=== PATIENT | female | born 2000 | race Caucasian/White ===

== ENCOUNTER 2023-12-28 16:20 | Emergency (ER) | payer MEDICAID, OTHER ==
[~2023-12-28] VITALS: Ht 165.1 cm; Wt 65.2 kg
[~2023-12-28 16:20] MED LIST: AMPH5TAB2; CLON0.1T
[2023-12-28 17:53] LABS: Urine Bacteria FEW /hpf (None Seen); Urine Blood Negative /uL (Negative); Urine Clarity Clear (Clear); Urine Color Yellow (Yellow); Urine Mucus FEW (None Seen); Urine Protein, UAD Negative (Negative); Urine Specific Gravity 1.021 (1.001-1.035); Urine Urobilinogen Normal (Negative); Urine WBC 6 /hpf (0 - 5); Urine pH 6.5 (5.0-9.0)
[2023-12-28 18:23] LABS: Basophils # (auto) 0 10 ^3/uL (0-0.2); Basophils % (auto) 0.2 % (0.0-2.0); Eosinophils # (auto) 0.1 10 ^3/uL (0-0.8); Eosinophils % (auto) 0.8 % (0.0-7.0); Hematocrit 36.7 % (36.0-46.0); Hemoglobin 12.6 g/dL (12.2-16.2); Lymphocytes # (auto) 1.3 10 ^3/uL (0.4-5.4); Lymphocytes % (auto) 12.9 % (10.0-50.0); Mean Corpuscular Hemoglobin 30.7 pg (28.0-32.0); Mean Corpuscular Hgb Conc. 34.2 g/dL (32.0-36.0); Mean Corpuscular Volume 89.8 fL (80.0-100.0); Monocytes # (auto) 0.5 10 ^3/uL (0-1.3); Monocytes % (auto) 5.3 % (0.0-12.0); Neutrophils # (auto) 8.4 10 ^3/uL (1.6-8.6); Neutrophils % (auto) 80.8 % (37.0-80.0); Nucleated Red Blood Cells % 0.1 %; Red Blood Cells 4.09 10^6/uL (4.0-5.20); White Blood Cell 10.4 10^3/uL (4.4-10.8)
[2023-12-28 19:40] VITALS: BP 104/65; PULSE 64; RESP 16; TEMP 98.2; O2SAT 100
== END 2023-12-28 19:43 | disposition home or self-care (01) ==
LOC: ER 16:20
DX: O20.8 Other hemorrhage in early pregnancy (principal); R10.2 Pelvic and perineal pain; Z79.899 Other long term (current) drug therapy; Z3A.20 20 weeks gestation of pregnancy
CPT/HCPCS: 36415; 76805; 81001; 83880; 84702; 85025

== ENCOUNTER 2024-03-14 23:32 | Observation (INO) | payer OTHER ==
[~2024-03-14] VITALS: Ht 167.6 cm; Wt 68.0 kg
[2024-03-15] MEDS ORDERED: NIF10C PO (01:31)
[2024-03-15] MEDS: NIFEdipine 10 MG CAP PO ONE (01:53)
== END 2024-03-15 01:55 | disposition home or self-care (01) ==
LOC: LDRP 23:32
PROVIDERS: ADMIT Obstetrics & Gynecology; ATTEND Obstetrics & Gynecology
DX: O46.93 Antepartum hemorrhage, unspecified, third trimester (principal); O26.893 Other specified pregnancy related conditions, third trimester; R30.9 Painful micturition, unspecified; Z3A.32 32 weeks gestation of pregnancy
CPT/HCPCS: 59025; 76815; 81002; 94760; G0378

== ENCOUNTER 2024-03-15 02:00 | Emergency (ER) | payer OTHER ==
[~2024-03-15] VITALS: Ht 167.6 cm; Wt 68.6 kg
[~2024-03-15 02:00] MED LIST changes: +NIF10C PO
[2024-03-15 02:20] LABS: Basophils # (auto) 0 10 ^3/uL (0-0.2); Basophils % (auto) 0.3 % (0.0-2.0); Eosinophils # (auto) 0.1 10 ^3/uL (0-0.8); Eosinophils % (auto) 0.8 % (0.0-7.0); Hematocrit 34.2 % (36.0-46.0); Hemoglobin 11.9 g/dL (12.2-16.2); Lymphocytes # (auto) 1.3 10 ^3/uL (0.4-5.4); Lymphocytes % (auto) 14.1 % (10.0-50.0); Mean Corpuscular Hemoglobin 31.7 pg (28.0-32.0); Mean Corpuscular Hgb Conc. 34.6 g/dL (32.0-36.0); Mean Corpuscular Volume 91.4 fL (80.0-100.0); Monocytes # (auto) 0.6 10 ^3/uL (0-1.3); Neutrophils # (auto) 7.5 10 ^3/uL (1.6-8.6); Neutrophils % (auto) 78.8 % (37.0-80.0); Nucleated Red Blood Cells % 0.1 %; Red Blood Cells 3.74 10^6/uL (4.0-5.20); Red Cell Distribution Width 13.5 % (11.8-14.3); White Blood Cell 9.5 10^3/uL (4.4-10.8)
[2024-03-15 02:38] LABS: Alanine Aminotransferase 13 U/L (7-40); Albumin 3.7 g/dL (3.2-4.8); Alkaline Phosphatase 82 U/L (46-116); Anion Gap 5 (5-15); Aspartate Aminotransferase 9 U/L (13-40); BUN/Creatinine Ratio 10.6 (10.0-20.0); Bilirubin, Total 0.9 mg/dL (0.2-1.0); Blood Urea Nitrogen 7 mg/dL (9-23); Carbon Dioxide 26 mmol/L (20-30); Chloride 106 mmol/L (98-107); Glucose 71 mg/dL (74-106); INR 0.97 (0.9-1.15); Magnesium 1.9 mg/dL (1.6-2.6); Partial Thromboplastin Time 26.8 SEC (24.5-34.5); Potassium 4.1 mmol/L (3.5-5.1); Prothrombin Time 10.3 sec (9.3-11.8); Sodium 137 mmol/L (136-145); Total Protein 6.4 g/dL (5.7-8.2)
[2024-03-15] MEDS: MAALOX PLUS or MAALOX 30 ML PO ONE (04:27)
[2024-03-15 04:30] VITALS: BP 101/58; PULSE 83; RESP 18; TEMP 98.6; O2SAT 99
== END 2024-03-15 04:33 | disposition home or self-care (01) ==
LOC: ER 02:00
DX: O26.893 Other specified pregnancy related conditions, third trimester (principal); R07.89 Other chest pain; K21.9 Gastro-esophageal reflux disease without esophagitis; Z3A.31 31 weeks gestation of pregnancy; Z79.899 Other long term (current) drug therapy
CPT/HCPCS: 36415; 80053; 83735; 83880; 84484; 85025; 85610; 85730; 93005

== ENCOUNTER 2024-03-30 14:35 | Observation (INO) | payer OTHER ==
[~2024-03-30] VITALS: Ht 165.1 cm; Wt 68.9 kg
[~2024-03-30 14:35] MED LIST changes: -NIF10C PO; +NIFE10CA52 PO
[2024-03-30 15:41] LABS: Urine Bacteria FEW /hpf (None Seen); Urine Blood 1+ /uL (Negative); Urine Clarity Turbid (Clear); Urine Color Light-Orange (Yellow); Urine Mucus FEW (None Seen); Urine Protein, UAD 1+ (Negative); Urine Specific Gravity 1.015 (1.001-1.035); Urine Urobilinogen 2 mg/dL (Negative); Urine WBC 506 /hpf (0 - 5); Urine WBC Clumps PRESENT /hpf (None Seen)
[2024-03-30 15:45] LABS: Amphetamine Screen, Urine Neg (NEGATIVE); Barbiturate Scree,Urine Neg (NEGATIVE); Benzodiazephine Screen, Urine Neg (NEGATIVE); Cannabinoid Screen, Urine Neg (NEGATIVE); Cocaine Screen, Urine Neg (NEGATIVE); Opiate Scree,Urine Neg (NEGATIVE); Phencyclidine Screen, Urine Neg (NEGATIVE)
[2024-03-30] MEDS: ceFAZolin 2 GM/D5W50ml 50 ML IV ONE (15:57)
[2024-03-30] MEDS: LACTATED RINGER'S 1,000 ML IV ONE ×2 (15:57→17:41)
[2024-03-30] MEDS ORDERED: PREN-96 PO (16:09)
[2024-03-30] MEDS ORDERED: CEPH250C PO (16:09)
[2024-03-30] MEDS: ACETAMINOPHEN 325 MG TAB PO ONE (17:44)
[2024-03-30] MEDS: LACTATED RINGER'S 1,000 ML IV SCH (20:30)
[2024-03-30 20:35] LABS: Basophils # (auto) 0 10 ^3/uL (0-0.2); Basophils % (auto) 0.3 % (0.0-2.0); Eosinophils # (auto) 0 10 ^3/uL (0-0.8); Hematocrit 31.6 % (36.0-46.0); Hemoglobin 10.6 g/dL (12.2-16.2); Lymphocytes # (auto) 0.4 10 ^3/uL (0.4-5.4); Lymphocytes % (auto) 2.5 % (10.0-50.0); Mean Corpuscular Hemoglobin 30.6 pg (28.0-32.0); Mean Corpuscular Hgb Conc. 33.5 g/dL (32.0-36.0); Mean Corpuscular Volume 91.2 fL (80.0-100.0); Monocytes # (auto) 0.4 10 ^3/uL (0-1.3); Monocytes % (auto) 2.3 % (0.0-12.0); Neutrophils # (auto) 14.9 10 ^3/uL (1.6-8.6); Neutrophils % (auto) 94.9 % (37.0-80.0); Red Blood Cells 3.47 10^6/uL (4.0-5.20); Red Cell Distribution Width 13.5 % (11.8-14.3); White Blood Cell 15.7 10^3/uL (4.4-10.8)
[2024-03-30] MEDS: ONDANSETRON HCL 4 MG/2 ML VIAL IM ONE (20:58)
[2024-03-30 21:19] LABS: COVID19 ANTIGEN SOFIA FIA NEGATIVE (NEGATIVE)
[2024-03-30 21:20] LABS: Rapid Influenza A Negative (Negative); Rapid Influenza B Negative (Negative)
[2024-03-31] MEDS ORDERED: ceFAZolin 1GM/50ML 50 ML IV SCH ×2
== END 2024-03-30 22:23 | disposition home or self-care (01) ==
LOC: LDRP 14:35
PROVIDERS: ADMIT Obstetrics & Gynecology; ATTEND Obstetrics & Gynecology
DX: O23.43 Unspecified infection of urinary tract in pregnancy, third trimester (principal); Z20.822 Contact with and (suspected) exposure to COVID-19; O62.9 Abnormality of forces of labor, unspecified; O26.893 Other specified pregnancy related conditions, third trimester; N89.8 Other specified noninflammatory disorders of vagina; R10.10 Upper abdominal pain, unspecified; Z3A.34 34 weeks gestation of pregnancy; Z79.899 Other long term (current) drug therapy
CPT/HCPCS: 36415; 59025; 76818; 80307; 81001; 81002; 85025; 87426; 87804; 94760; 96360; 96361; G0378; J0690; J2405; 96365; 96372

== ENCOUNTER 2024-03-30 22:55 | Emergency (ER) | payer OTHER ==
[~2024-03-30] VITALS: Ht 167.6 cm; Wt 69.0 kg
[~2024-03-30 22:55] MED LIST changes: +CEPH250C PO; +PREN-96 PO
[2024-03-30] MEDS: SODIUM CHLORIDE 0.9% 1,000 ML IV ONE ×2 (23:12→23:15)
[2024-03-30] MEDS: ACETAMINOPHEN 500 MG TAB PO ONE ×2 (23:12→23:33)
[2024-03-30 23:44] LABS: Basophils # (auto) 0 10 ^3/uL (0-0.2); Basophils % (auto) 0.1 % (0.0-2.0); Eosinophils # (auto) 0 10 ^3/uL (0-0.8); Hematocrit 34.5 % (36.0-46.0); Hemoglobin 11.3 g/dL (12.2-16.2); Lymphocytes # (auto) 0.5 10 ^3/uL (0.4-5.4); Lymphocytes % (auto) 2.2 % (10.0-50.0); Mean Corpuscular Hemoglobin 31.1 pg (28.0-32.0); Mean Corpuscular Hgb Conc. 32.9 g/dL (32.0-36.0); Mean Corpuscular Volume 94.7 fL (80.0-100.0); Monocytes # (auto) 1.2 10 ^3/uL (0-1.3); Monocytes % (auto) 5.3 % (0.0-12.0); Neutrophils # (auto) 21.4 10 ^3/uL (1.6-8.6); Neutrophils % (auto) 92.4 % (37.0-80.0); Platelet Count (auto) 156 10^3/uL (140-450); Red Blood Cells 3.64 10^6/uL (4.0-5.20); Red Cell Distribution Width 13.9 % (11.8-14.3); White Blood Cell 23.2 10^3/uL (4.4-10.8)
[2024-03-30 23:49] LABS: Chloride 104 mmol/L (98-107); Potassium 3.7 mmol/L (3.5-5.1); Sodium 133 mmol/L (136-145)
[2024-03-30 23:50] LABS: Anion Gap 9 (5-15); Calcium 8.4 mg/dL (8.7-10.4); Carbon Dioxide 20 mmol/L (20-30)
[2024-03-30 23:55] LABS: Glucose 92 mg/dL (74-106)
[2024-03-31 00:17] LABS: BUN/Creatinine Ratio 6.5 (10.0-20.0); Blood Urea Nitrogen < 5 mg/dL (9-23)
[2024-03-31] MEDS: SODIUM CHLORIDE 0.9% 2,000 ML IV ONE (00:29)
[2024-03-31] MEDS: cefTRIAXone 1GM/50ML D5W 50 ML IV ONE (01:17)
[2024-03-31] MEDS: SODIUM CHLORIDE 0.9% 1,000 ML IV ONE (01:38)
[2024-03-31 02:05] VITALS: BP 91/46; PULSE 121; RESP 25; TEMP 99.7; O2SAT 96
== END 2024-03-31 01:29 | disposition short-term general hospital (02) ==
LOC: ER 22:55
DX: O98.813 Other maternal infectious and parasitic diseases complicating pregnancy, third trimester (principal); R10.2 Pelvic and perineal pain; A41.9 Sepsis, unspecified organism; O23.43 Unspecified infection of urinary tract in pregnancy, third trimester; Z3A.34 34 weeks gestation of pregnancy; Z79.899 Other long term (current) drug therapy
CPT/HCPCS: 36415; 51702; 80048; 84702; 85025; 96361; 96365; 99285; J0696; J7030

== ENCOUNTER 2024-06-13 17:39 | Emergency (ER) | payer OTHER ==
[~2024-06-13] VITALS: Ht 167.6 cm; Wt 68.0 kg
[2024-06-13 18:34] LABS: Urine Bacteria FEW /hpf (None Seen); Urine Blood 3+ /uL (Negative); Urine Clarity Turbid (Clear); Urine Color Colorless (Yellow); Urine Mucus FEW (None Seen); Urine Protein, UAD Negative (Negative); Urine Specific Gravity 1.012 (1.001-1.035); Urine Urobilinogen Normal (Negative); Urine WBC 18 /hpf (0 - 5); Urine pH 6.5 (5.0-9.0)
[2024-06-13 18:53] LABS: Basophils # (auto) 0 10 ^3/uL (0-0.2); Basophils % (auto) 0.7 % (0.0-2.0); Eosinophils # (auto) 0.1 10 ^3/uL (0-0.8); Hematocrit 39.2 % (36.0-46.0); Hemoglobin 13.3 g/dL (12.2-16.2); Lymphocytes # (auto) 1.3 10 ^3/uL (0.4-5.4); Mean Corpuscular Hemoglobin 29.3 pg (28.0-32.0); Mean Corpuscular Hgb Conc. 33.9 g/dL (32.0-36.0); Mean Corpuscular Volume 86.4 fL (80.0-100.0); Monocytes # (auto) 0.3 10 ^3/uL (0-1.3); Monocytes % (auto) 5.4 % (0.0-12.0); Neutrophils # (auto) 3.8 10 ^3/uL (1.6-8.6); Neutrophils % (auto) 68.9 % (37.0-80.0); Nucleated Red Blood Cells % 0.1 %; Platelet Count (auto) 251 10^3/uL (140-450); Red Blood Cells 4.53 10^6/uL (4.0-5.20); Red Cell Distribution Width 13.1 % (11.8-14.3); White Blood Cell 5.6 10^3/uL (4.4-10.8)
[2024-06-13 19:03] LABS: Chloride 107 mmol/L (98-107); Potassium 4.2 mmol/L (3.5-5.1); Sodium 140 mmol/L (136-145)
[2024-06-13 19:04] LABS: Anion Gap 5 (5-15); Calcium 9.4 mg/dL (8.7-10.4); Carbon Dioxide 28 mmol/L (20-31)
[2024-06-13 19:09] LABS: BUN/Creatinine Ratio 12.5 (10.0-20.0); Blood Urea Nitrogen 12 mg/dL (9-23); Glucose 98 mg/dL (74-106)
[2024-06-13] MEDS ORDERED: NITR-87 PO (19:53)
[2024-06-13] MEDS: NITROFURANTOIN 100 mg CAP PO ONE (20:15)
[2024-06-13 20:18] VITALS: BP 105/74; PULSE 72; RESP 18; TEMP 98.4; O2SAT 100
== END 2024-06-13 20:21 | disposition home or self-care (01) ==
LOC: ER 17:39
DX: N39.0 Urinary tract infection, site not specified (principal); R10.2 Pelvic and perineal pain; N93.8 Other specified abnormal uterine and vaginal bleeding; Z79.3 Long term (current) use of hormonal contraceptives
CPT/HCPCS: 36415; 80048; 81001; 84702; 85025

== ENCOUNTER 2024-07-21 17:55 | Emergency (ER) | payer OTHER ==
[~2024-07-21] VITALS: Ht 165.1 cm; Wt 67.6 kg
[~2024-07-21 17:55] MED LIST changes: +NITR-87 PO
[2024-07-21] MEDS: FLUORESCEIN SOD OPTH TEST STRIP LEFTEYE ONE (21:36)
[2024-07-21] MEDS: TETRACAINE HCL 0.5% OPTH(EYE) SOLN 4ML LEFTEYE ONE (21:36)
[2024-07-21] MEDS ORDERED: ERY05OO OP (21:44)
--- NOTE | 2024-07-21 21:44 | ED.PDOC ---
Eye-HPI HPI Comments 23 year old female presents to ER with left eye complaint x 1 day. Patient states her son accidentally poked her in her left eye this morning with his toe nail and has since been experiencing 10/10 left eye pain, redness and yellow crusty drainage to left eye. Denies use of medications for current symptoms. States that the contacts that she was wearing were non prescription contacts and immediately removed both of them at onset of symptoms. Denies skin changes, use of glasses, numbness/tingling, headache or any further symptoms/complaints Chief Complaint: Eye Problem Time Seen by MD: 19:10 Primary Care Provider: Coy Villalobos Notes: Nurses Notes, Medications, Allergies Allergies: Coded Allergies: NO KNOWN ALLERGIES (Unverified , 05/15/12) Home Meds Active Scripts Gentamicin Sulfate (Gentamicin Sulfate) 0.3 % Summer, 2 DROP LEFTEYE 6XD for 5 Days, #1 BOTTLE 0 Refills Prov:GARRISON ANAND 07/21/24 Nitrofurantoin Monohydrate Mac (Macrobid) 100 Mg Cap, 100 MG PO BID for 5 Days, #10 CAP Prov:GIL AVILEZ PAC 06/13/24 Reported Medications Vit W/ Ferrous Fumara ( One Daily) Daily Tab, 1 TAB PO DAILY, #90 TAB 3 Refills 03/30/24 Cephalexin (KEFLEX CAPSULE) 250 Mg Cp, 500 MG PO QID for 7 Days, CAP 03/30/24 Nifedipine (PROCARDIA CAPSULE) 10 Mg Cp, 10 MG PO, CAP 03/15/24 Amphetamine/Dextroamphetamine (Adderall) 5 Mg Tab 05/15/12 Clonidine Hydrochloride (Clonidine Hcl) 0.1 Mg Tab 05/15/12 Discontinued Scripts Erythromycin (Erythromycin) 5 Mg/Gm Oin, 1 MG OP 6XD for 7 Days, #1 OIN 0 Refills Prov:GARRISON ANAND 07/21/24 Information Source: Patient Mode of Arrival: Ambulatory Past Medical History PAST MEDICAL HISTORY: UTI'S Past Medical History (Other): 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" 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 History: No Pertinent DIRECTOR OF 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 CATH LAB History Family History Family History: Unknown Social History Smoker: Non-Smoker Alcohol: Denies ETOH Use Drugs: Denies Drug Use Lives In: Home Constitutional: denies: chills, diaphoresis, fatigue, fever, malaise, sweats, weakness, others EENTM: reports: others (As stated in HPI) Respiratory: denies: cough, hemoptysis, orthopnea, SOB at rest, shortness of breath, SOB with excertion, stridor, wheezing, others Cardiovascular: denies: chest pain, dizzy spells, diaphoresis, Dyspnea on exertion, edema, irregular heart beat, left arm pain, lightheadedness, palp itations, PND, syncope, others Gastrointestinal: denies: abdomen distended, abdominal pain, blood streaked bowels, constipated, diarrhea, dysphagia, difficulty swallowing, hematemesis, melena, nausea, poor appetite, poor fluid intake, rectal bleeding, rectal pain, vomiting, others Genitourinary: denies: abnormal vagina bleeding, burning, dyspareunia, dysuria, flank pain, frequency, hematuria, incontinence, pain, , vagina discharge, urgency, others Neurological: denies: dizziness, fainting, headache, left sided numbness, left sided weakness, numbness, paresthesia, pre-existing deficit, right sided numbness, right sided weakness, seizure, speech problems, tingling, tremors, weakness, others Musculoskeletal: denies: back pain, gout, joint pain, joint swelling, muscle pain, muscle stiffness, neck pain, others Integumetry: denies: bruises, change in color, change in hair/nails, dryness, laceration, lesions, lumps, rash, wounds, others Allergic/Immunocompromised: denies: Difficulty Healing, Frequent Infections, Hives, Itching, others Hematologic/Lymphatic: denies: anemia, blood clots, easy bleeding, easy br uising, swollen glands, others Endocrine: denies: excessive hunger, excessive sweating, excessive thirst, excessive urination, flushing, intolerance to cold, intolerance to heat, unexplained weight gain, unexplained weight loss, others Psychiatric: denies: anxiety, bipolar disorder, depression, hopeless, panic disorder, schizophrenia, sleepless, suicidal, others Physical Exam General Appearance: No Apparent Distress HEENT: PERRL/EOMI, Pharynx Normal, TMs Normal, Other (Wood's lamp examination left eye-corneal abrasion and subconjunctival injection noted. No corneal ulcer noted. No drainage or skin changes to left eye appreciated. Visual acuity left eye- 20/70, Visual acuity right eye- 20/100, Visual acuity both eyes- 20/50) Neck: Full Range of Motion, Non-Tender, Normal Respiratory: Chest Non-Tender, Lungs Clear, No Accessory Muscle Use, No Respiratory Distress, Normal Breath Sounds Cardiovascular: No Murmur, No Gallop, Regular Rate/Rhythm Breast Exam: Deferred Gastrointestinal: NOT DONE Genitalia: Deferred Pelvic: Deferred Rectal: Deferred Extremities: Normal capillary refill, Normal range of motion Neurologic: Alert, No Motor Deficits, Normal Affect, Normal Mood, No Sensory Deficits Cerebellar Function: Normal Reflexes: Normal Skin: Dry, Normal Color, Warm Peripheral Pulses: 2+ Radial (R), 2+ Radial (L), 2+ Brachial (R), 2+ Brachial (L) Lymphatic: No Adenopathy Was a procedure done? Was a procedure done?: No Sedation Sedation?: No EENT DIFF Eye: Corneal Lacerations, Corneal Ulceration, Foreign Body-Conjunctiva, Periorbital Cellulits X-Ray, Labs, Meds, VS Vital Signs Date Time Temp Pulse Resp B/P (MAP) Pulse Ox O2 Delivery O2 Flow Rate FiO2 07/21/24 19:06 98.8 76 16 111/74 (86) 98 Current Medications Medications (Trade) Dose Ordered Sig/Juan Route Start Time Stop Time Status Last Admin Fluorescein Sodium (Ful-Stella) 1 mg ONCE ONCE LEFTEYE 07/21/24 21:30 07/21/24 21:31 DC 07/21/24 21:36 Tetracaine HCl (Tetracaine 0.5% Opth Soln) 1 drop ONCE ONCE LEFTEYE 07/21/24 21:30 07/21/24 21:31 DC 07/21/24 21:36 Tetracaine ophthalmic ordered Fluorescein stain ophthalmic ordered Advised to refrain from using contacts until symptoms completely resolved Advised to follow up with PCP and Ophthalmology in 1-2 days Patient verbalized understanding and agreeable with current plan of care Advised to return to ER immediately if symptoms worsen Time of 1ST Reevaluation: 21:20 Reevaluation 1ST: N/A Patient Education/Counseling: Diagnosis, Treatment, Prognosis, Need For Follow Up Family Education/Counseling: No Family Present Departure 1 Departure Time of Disposition: 21:42 Impression: Primary Impression: Corneal abrasion, left Qualified Codes: S05.02XA - Injury of conjunctiva and corneal abrasion without foreign body, left eye, initial encounter Disposition: HOME / SELF CARE / HOMELESS Condition: Stable e-Prescriptions Gentamicin Sulfate (Gentamicin Sulfate) 0.3 % Summer 2 DROP LEFTEYE 6XD for 5 Days, #1 BOTTLE 0 Refills Prov: GARRISON ANAND 07/21/24 Discharged With: Self, Friend Critical Care Note Critical Care Time?: No Stability Stability form required: No Heart Score Heart Score: Heart Score Response (Comments) Value History N/A 0 EKG N/A 0 Age N/A 0 Risk Factors N/A 0 Troponin N/A 0 Total 0 GARRISON ANAND Jul 21, 2024 21:44
[2024-07-21] MEDS ORDERED: GENT0.3S10 LEFTEYE (21:48)
[2024-07-21 21:52] VITALS: BP 118/78; TEMP 97.9
[2024-07-21 22:00] VITALS: PULSE 66; RESP 12; O2SAT 98
== END 2024-07-21 22:06 | disposition home or self-care (01) ==
LOC: ER 17:55
DX: S05.02XA Injury of conjunctiva and corneal abrasion without foreign body, left eye, initial encounter (principal); H54.61 Unqualified visual loss, right eye, normal vision left eye; Z79.899 Other long term (current) drug therapy; X58.XXXA Exposure to other specified factors, initial encounter; Y93.89 Activity, other specified; Y92.89 Other specified places as the place of occurrence of the external cause; Y99.8 Other external cause status

== ENCOUNTER 2025-05-03 09:54 | Emergency (ER) | payer OTHER ==
[~2025-05-03] VITALS: Ht 167.6 cm; Wt 61.4 kg
[~2025-05-03 09:54] MED LIST changes: +GENT0.3S10 LEFTEYE
[2025-05-03 09:58] VITALS: TEMP 98.2
[2025-05-03] MEDS ORDERED: CEPH500C PO (10:13)
[2025-05-03] MEDS ORDERED: TRIA0.02 TOP (10:13)
--- NOTE | 2025-05-03 10:16 | ED.PDOC ---
History of Present Illness(SKN HPI Comments A 24 YEAR OLD FEMALE PRESENTS TO THE ED WITH COMPLAINT OF INSECT BITE. PATIENT STATES SHE HAS AN INSECT BITE ON THE RIGHT SIDE OF HER NECK THAT SHE NOTICED YESTERDAY. PATIENT DENIES FEVER, CHILLS, SHORTNESS OF BREATH, CHEST PAIN, ABDOMINAL PAIN, NAUSEA, VOMITING, HEADACHE, OR OTHER COMPLAINTS. NO OTHER SYM PTOMS OR MODIFYING FACTORS AT THIS TIME. PATIENT IS ALERT, ORIENTED X 4, AND HAS STEADY GAIT. Chief Complaint: Insect Bite Time Seen by MD: 10:03 Primary Care Provider: Coy History of Present Illness: Nurses Notes, Medications, Allergies Allergies: Coded Allergies: Coconut (Cocos Nucifera) (Verified Allergy, Unknown, 05/03/25) Fluoxetine (Verified Allergy, Unknown, 05/03/25) Home Meds Active Scripts Cephalexin Monohydrate (Cephalexin) 500 Mg Cap, 1 CAP PO QID, #28 CAP Prov:VILLA DANIELLE 05/03/25 Triamcinolone Acetonide (Triamcinolone Acetonide) 0.025 % Cre, 1 APPLIC TOP BID, #30 GRAMS Prov:VILLA DANIELLE 05/03/25 Gentamicin Sulfate (Gentamicin Sulfate) 0.3 % Summer, 2 DROP LEFTEYE 6XD for 5 Days, #1 BOTTLE 0 Refills Prov:GARRISON ANAND 07/21/24 Nitrofurantoin Monohydrate Mac (Macrobid) 100 Mg Cap, 100 MG PO BID for 5 Days, #10 CAP Prov:GIL AVILEZ PAC 06/13/24 Reported Medications Vit W/ Ferrous Fumara ( One Daily) Daily Tab, 1 TAB PO DAILY, #90 TAB 3 Refills 03/30/24 Cephalexin (KEFLEX CAPSULE) 250 Mg Cp, 500 MG PO QID for 7 Days, CAP 03/30/24 Nifedipine (PROCARDIA CAPSULE) 10 Mg Cp, 10 MG PO, CAP 03/15/24 Amphetamine/Dextroamphetamine (Adderall) 5 Mg Tab 05/15/12 Clonidine Hydrochloride (Clonidine Hcl) 0.1 Mg Tab 05/15/12 Information Source: Patient Mode of Arrival: Ambulatory Severity: Mild, Moderate Timing: Days Duration: Since onset, Days Prehospital treatment: None Location: Neck Mechanism: Insect Occurence: Indoors Object: None Condition of Object: None Retained Foreign Body: No Wound Type: Other (INSECT BITE) Immunization Status of Animal: NA Tetanus: UTD History of: None Associated Signs and Symptoms: Redness, Pain Past Medical History PAST MEDICAL HISTORY: UTI'S 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: [employer] PROCESSING [employer]OURER History: No Pertinent [employer]ING [employer]ER History Family History Family History: Reviewed,noncontributory to illness Social History Smoker: Non-Smoker Alcohol: Denies ETOH Use Drugs: Denies Drug Use Lives In: Home Constitutional: denies: chills, diaphoresis, fatigue, fever, malaise, sweats, weakness, others EENTM: denies: blurred vision, double vision, ear bleeding, ear discharge, ear drainage, ear pain, ear ringing, eye pain, eye redness, hearing loss, mouth pain, mouth swelling, nasal discharge, nose bleeding, nose congestion, nose pain, photophobia, tearing, throat pain, throat swelling, voice changes, others Respiratory: denies: cough, hemoptysis, orthopnea, SOB at rest, shortness of breath, SOB with excertion, stridor, wheezing, others Cardiovascular: denies: chest pain, dizzy spells, diaphoresis, Dyspnea on exertion, edema, irregular heart beat, left arm pain, lightheadedness, palpitations, PND, syncope, others Gastrointestinal: denies: abdomen distended, abdominal pain, blood streaked bowels, constipated, diarrhea, dysphagia, difficulty swallowing, hematemesis, m joelle, nausea, poor appetite, poor fluid intake, rectal bleeding, rectal pain, vomiting, others Genitourinary: denies: abnormal vagina bleeding, burning, dyspareunia, dysuria, flank pain, frequency, hematuria, incontinence, pain, , vagina discharge, urgency, others Neurological: denies: dizziness, fainting, headache, left sided numbness, left sided weakness, numbness, paresthesia, pre-existing deficit, right sided numbness, right sided weakness, seizure, speech problems, tingling, tremors, weakness, others Musculoskeletal: denies: back pain, gout, joint pain, joint swelling, muscle pain, muscle stiffness, neck pain, others Integumetry: reports: lumps (RIGHT POSTERIOR NECK WALL. ), others (INSECT BITE OF NECK); denies: bruises, change in color, change in hair/nails, dryness, laceration, lesions, rash, wounds Allergic/Immunocompromised: denies: Difficulty Healing, Frequent Infections, Hives, Itching, others Hematologic/Lymphatic: denies: anemia, blood clots, easy bleeding, easy bruising, swollen glands, others Endocrine: denies: excessive hunger, excessive sweating, excessive thirst, excessive urination, flushing, intolerance to cold, intolerance to heat, unexplained weight gain, unexplained weight loss, others Psychiatric: denies: anxiety, bipolar disorder, depression, hopeless, panic disorder, schizophrenia, sleepless, suicidal, others All Other Systems: Reviewed and Negative Physical Exam General Appearance: No Apparent Distress, Normal HEENT: Normal ENT Inspection, PERRL/EOMI, Pharynx Normal, TMs Normal Neck: Full Range of Motion, Normal Inspection, Supple, Tender Lateral (WITH A SMALL RED BUM ON RIGHT SIDE NECK WALL. ) Respiratory: Chest Non-Tender, Lungs Clear, No Accessory Muscle Use, No Respiratory Distress, Normal Breath Sounds Cardiovascular: No Edema, No JVD, No Murmur, No Gallop, Normal Peripheral Pulses, Regular Rate/Rhythm Breast Exam: Deferred Gastrointestinal: No Organomegaly, Non Tender, No Pulsatile Mass, Normal Bowel Sounds, Soft Genitalia: Deferred Pelvic: Deferred Rectal: Deferred Extremities: No calf tenderness, Normal capillary refill, Normal inspection, Normal range of motion, Non-tender, No pedal edema Musculoskeletal : Apperance: Normal Neurologic: Alert, jigger artisan II-XII nml as Tested, No Motor Deficits, Normal Affect, Normal Mood, No Sensory Deficits Cerebellar Function: Normal Reflexes: Normal Skin: Dry, Normal Color, Warm, Other (A SMALL RED BUM ON RIGHT POSTERIOR NECK WALL, NO OPEN WOUND AND DRAINAGE. ) Peripheral Pulses: 2+ carotid (R), 2+ carotid (L) Lymphatic: No Adenopathy Was a procedure done? Was a procedure done?: No Differential Diagnosis (INTG) Differential Diagnosis: Abrasion, Cellulitis, Contusion, Insect Envenomation, Puncture Wound Differential Diagnosis: N/A Differential Diagnosis: N/A Abscess: N/A Differential Diagnosis: N/A X-Ray, Labs, Meds, VS Vital Signs Date Time Temp Pulse Resp B/P (MAP) Pulse Ox O2 Delivery O2 Flow Rate FiO2 05/03/25 10:21 99 16 98 Room Air 05/03/25 10:21 99 16 116/73 (87) 98 05/03/25 09:58 98.2 99 16 116/73 98 98.2 X-Ray, Labs, Meds, VS Comment EXTERNAL MEDICAL RECORDS REVIEWED: [NONE] INDEPENDENT HISTORIANS: [NONE] SOCIAL DETERMINANTS OF HEALTH: [NONE] LABS ORDERED: NONE REVIEWED AND INTERPRETED RESULTS: NONE IMAGING ORDERED: NONE TREATMENTS ORDERED: NONE PROCEDURES PERFORMED: NONE CRITICAL CARE TIME: NONE I HAVE DISCUSSED THE PATIENT WITH THE ATTENDING PHYSICIAN DR. OLMOS AND HE AGREES WITH THE PATIENT'S PLAN OF CARE AND DISPOSITION. BASED ON HISTORY OF PRESENT ILLNESS, AND PHYSICAL EXAM, PATIENT WILL BE DISCHARGED HOME. DISCUSSED PLAN FOR DISCHARGE HOME WITH RX [KEFLEX AND TRIAMCINOLONE CREAM]. MEDICATION WARNINGS GIVEN. SHARED DECISION MAKING: PATIENT INSTRUCTED TO FOLLOW UP WITH PRIMARY CARE PROVIDER IN 1-2 DAYS FOR RE-EVALUATION OF SYMPTOMS. PATIENT VERBALIZES UNDERSTANDING TO RETURN TO ED FOR NEW OR WORSENING SYMPTOMS OR IF FOLLOW UP WITH PCP CANNOT BE OBTAINED. PATIENT FEELS COMFORTABLE GOING HOME AT THIS TIME. ALL QUESTIONS ADDRESSED AT TIME OF DISCHARGE. Time of 1ST Reevaluation: : Reevaluation 1ST: Unchanged Patient Education/Counseling: Diagnosis, Treatment, Need For Follow Up Family Education/Counseling: Diagnosis, Treatment, Need For Follow Up Medical Screening: No EMC Exist At This Time SEPSIS Sepsis Screen Date sepsis recognized/suspect: May 03, 2025 Time Sepsis recognized/suspect: 1000 Recent Procedure: No On Antibiotic Therapy: No Respiratory Rate >20: No Heart Rate >90: Yes Temp<36 C (96.8 F) or >38.3 C: No SBP <90 or MAP <65 mmHG: No New Acute Mental Status Change: No Is the patient on CPAP, BIPAP,: No Vital Signs Date Time Temp Pulse Resp B/P (MAP) Pulse Ox O2 Delivery O2 Flow Rate FiO2 05/03/25 10:21 99 16 98 Room Air 05/03/25 10:21 99 16 116/73 (87) 98 05/03/25 09:58 98.2 99 16 116/73 98 98.2 Departure 1 Departure Time of Disposition: :31 Impression: Primary Impression: Insect bite of neck Qualified Codes: S10.96XA - Insect bite of unspecified part of neck, initial encounter; W57.XXXA - Bitten or stung by nonvenomous insect and other nonvenomous arthropods, initial encounter Disposition: 01 HOME / SELF CARE / HOMELESS Condition: Stable Additional Instructions: FOLLOW-UP WITH PCP IN 1 TO 2 DAYS. TAKE MEDICATIONS PRESCRIBED. RETURN TO ED FOR ANY NEW OR WORSENING SYMPTOMS. e-Prescriptions Cephalexin Monohydrate (Cephalexin) 500 Mg Cap 1 CAP PO QID, #28 CAP Prov: VILLA DANIELLE 05/03/25 Triamcinolone Acetonide (Triamcinolone Acetonide) 0.025 % Cre 1 APPLIC TOP BID, #30 GRAMS Prov: VILLA DANIELLE 05/03/25 Discharged With: Self Critical Care Note Critical Care Time?: No Stability Stability form required: No I personally scribed for VILLA DANIELLE ([email or web address]) on 05/03/25 at 10:16. Electronically submitted by Anthony West ([email or web address]). VILLA DANIELLE May 03, 2025 10:16
[2025-05-03 10:21] VITALS: BP 116/73; PULSE 99; RESP 16; O2SAT 98
[2025-05-03] MEDS ORDERED: METR-344 PO (13:04)
[2025-05-03] MEDS ORDERED: IBU600T PO (13:04)
== END 2025-05-03 10:20 | disposition home or self-care (01) ==
LOC: ER 09:59
DX: S10.96XA Insect bite of unspecified part of neck, initial encounter (principal); Z87.440 Personal history of urinary (tract) infections; Z91.018 Allergy to other foods; W57.XXXA Bitten or stung by nonvenomous insect and other nonvenomous arthropods, initial encounter; Y93.89 Activity, other specified; Y92.89 Other specified places as the place of occurrence of the external cause; Y99.8 Other external cause status

== ENCOUNTER 2025-05-03 10:23 | Emergency (ER) | payer OTHER ==
[~2025-05-03] VITALS: Ht 167.6 cm; Wt 61.4 kg
[~2025-05-03 10:23] MED LIST changes: +CEPH500C PO; +TRIA0.02 TOP
--- NOTE | 2025-05-03 11:30 | ED.PDOC ---
History of Present Illness HPI Comments 24-year-old female presents to the ER with a chief complaint of SOB x 1 week intermittently with associated lightheadedness and abdominal pain. Patient states that she has been having intermittent SOB over the past week and a nonproductive cough. Patient reports that whenever she coughs, she experiences abdominal pain in her periumbilical region. Patient denies possibility of being . Chief Complaint: Shortness of Breath Time Seen by MD: 11:16 Primary Care Provider: Coy Villalobos Notes: Medications, Allergies Allergies: Coded Allergies: Coconut (Cocos Nucifera) (Verified Allergy, Unknown, 05/03/25) Fluoxetine (Verified Allergy, Unknown, 05/03/25) Home Meds Active Scripts Ibuprofen Micronized (MOTRIN TABLET) 600 Mg Tb, 600 MG PO TID PRN for 3 Days, #9 TAB *Black box warning-NSAIDS can increase risk of AL & hypertension, GI irritation, ulceration, bleed, perferation. Do not use post cardiac surgery. Use short duration/lowest effective dose. Prov:CHAD OLMOS MD 05/03/25 Metronidazole (Flagyl) 500 Mg Tab, 500 MG PO TID for 5 Days, #15 TAB Prov:CHAD OLMOS MD 05/03/25 Cephalexin Monohydrate (Cephalexin) 500 Mg Cap, 1 CAP PO QID, #28 CAP Prov:VILLA DANIELLE 05/03/25 Triamcinolone Acetonide (Triamcinolone Acetonide) 0.025 % Cre, 1 APPLIC TOP BID, #30 GRAMS Prov:VILLA DANIELLE 05/03/25 Gentamicin Sulfate (Gentamicin Sulfate) 0.3 % Summer, 2 DROP LEFTEYE 6XD for 5 Days, #1 BOTTLE 0 Refills Prov:GARRISON ANAND 07/21/24 Nitrofurantoin Monohydrate Mac (Macrobid) 100 Mg Cap, 100 MG PO BID for 5 Days, #10 CAP Prov:GIL AVILEZ PAC 06/13/24 Reported Medications Vit W/ Ferrous Fumara ( One Daily) Daily Tab, 1 TAB PO DAILY, #90 TAB 3 Refills 03/30/24 Cephalexin (KEFLEX CAPSULE) 250 Mg Cp, 500 MG PO QID for 7 Days, CAP 03/30/24 Nifedipine (PROCARDIA CAPSULE) 10 Mg Cp, 10 MG PO, CAP 03/15/24 Amphetamine/Dextroamphetamine (Adderall) 5 Mg Tab 05/15/12 Clonidine Hydrochloride (Clonidine Hcl) 0.1 Mg Tab 05/15/12 Information Source: Patient Mode of Arrival: Ambulatory Severity: Moderate Timing: Days Duration: Since onset Prehospital treatment: None Past Medical History PAST MEDICAL HISTORY: UTI'S 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: 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 FINANCE 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 History: No Pertinent AUTOMOTIVE FINANCE MANAGER History Family History Family History: Reviewed,noncontributory to illness Social History Smoker: Non-Smoker Alcohol: Denies ETOH Use Drugs: Denies Drug Use Lives In: Home Constitutional: denies: chills, diaphoresis, fatigue, fever, malaise, sweats, weakness, others EENTM: denies: blurred vision, double vision, ear bleeding, ear discharge, ear drainage, ear pain, ear ringing, eye pain, eye redness, hearing loss, mouth pain, mouth swelling, nasal discharge, nose bleeding, nose congestion, nose pain, photophobia, tearing, throat pain, throat swelling, voice changes, others Respiratory: reports: cough, shortness of breath; denies: hemoptysis, orthopnea, SOB at rest, SOB with excertion, stridor, wheezing, others Cardiovascular: reports: lightheadedness; denies: chest pain, dizzy spells, diaphoresis, Dyspnea on exertion, edema, irregular heart beat, left arm pain, palpitations, PND, syncope, others Gastrointestinal: denies: abdomen distended, abdominal pain, blood streaked bowels, constipated, diarrhea, dysphagia, difficulty swallowing, hematemesis, melena, nausea, poor appetite, poor fluid intake, rectal bleeding, rectal pain, vomiting, others Genitourinary: denies: abnormal vagina bleeding, burning, dyspareunia, dysuria, flank pain, frequency, hematuria, incontinence, pain, , vagina discharge, urgency, others Neurological: denies: dizziness, fainting, headache, left sided numbness, left sided weakness, numbness, paresthesia, pre-existing deficit, right sided numbness, right sided weakness, seizure, speech problems, tingling, tremors, weakness, others Musculoskeletal: denies: back pain, gout, joint pain, joint swelling, muscle pain, muscle stiffness, neck pain, others Integumetry: denies: bruises, change in color, change in hair/nails, dryness, laceration, lesions, lumps, rash, wounds, others Allergic/Immunocompromised: denies: Difficulty Healing, Frequent Infections, Hives, Itching, others Hematologic/Lymphatic: denies: anemia, blood clots, easy bleeding, easy bruising, swollen glands, others Endocrine: denies: excessive hunger, excessive sweating, excessive thirst, excessive urination, flushing, intolerance to cold, intolerance to heat, unexplained weight gain, unexplained weight loss, others Psychiatric: denies: anxiety, bipolar disorder, depression, hopeless, panic disorder, schizophrenia, sleepless, suicidal, others All Other Systems: Reviewed and Negative Physical Exam General Appearance: Moderate Distress, Normal HEENT: Normal ENT Inspection, Pharynx Normal, TMs Normal Neck: Full Range of Motion, Non-Tender, Normal, Normal Inspection Respiratory: Chest Non-Tender, Lungs Clear, No Accessory Muscle Use, No Respiratory Distress, Normal Breath Sounds Cardiovascular: No Edema, No JVD, No Murmur, No Gallop, Normal Peripheral Pulses, Regular Rate/Rhythm Breast Exam: Deferred Gastrointestinal: No Organomegaly, Non Tender, No Pulsatile Mass, Normal Bowel Sounds, Soft Genitalia: Deferred Pelvic: Deferred Rectal: Deferred Extremities: No calf tenderness, Normal capillary refill, Normal inspection, Normal range of motion, Non-tender, No pedal edema Musculoskeletal : Apperance: Normal Neurologic: Alert, hotel concierge II-XII nml as Tested, No Motor Deficits, Normal Affect, Normal Mood, No Sensory Deficits Cerebellar Function: Normal Reflexes: Normal Skin: Dry, Normal Color, Warm Peripheral Pulses: 3+ Radial (R), 3+ Radial (L) Lymphatic: No Adenopathy Was a procedure done? Was a procedure done?: No Differential Dx Considerations may include: Heat exhaustion X-Ray, Labs, Meds, VS Vital Signs Date Time Temp Pulse Resp B/P (MAP) Pulse Ox O2 Delivery O2 Flow Rate FiO2 05/03/25 13:24 98.0 78 16 122/66 (84) 100 98.0 05/03/25 11:57 98.7 78 16 122/66 (84) 100 98.7 05/03/25 11:57 78 17 100 Room Air 05/03/25 10:24 98.0 89 18 100/58 99 98.0 Lab Test 05/03/25 11:28 Range/Units D-Dimer, Quantitative 0.30 0.0-0.49 mg/L FEU Current Medications Medications (Trade) Dose Ordered Sig/Juan Route Start Time Stop Time Status Last Admin Sodium Chloride 1,000 ml @ 1,000 mls/hr Q1H ONCE IV 05/03/25 11:30 05/03/25 12:29 DC 05/03/25 11:48 Patient alert. Vitals stable. No acute process. Ambulating. Abdomen is soft nontender. Symptoms do not match the signs. CT scan reviewed does not show any acute changes mild inflammatory. Possible mesenteric adenitis. Was given prescription of Flagyl antibiotic. Explained to the patient. Was told to follow up with her primary care physician. Was told to come back if there is any problem. Time of 1ST Reevaluation: 11:46 Reevaluation 1ST: Improved Patient Education/Counseling: Diagnosis, Treatment, Need For Follow Up Family Education/Counseling: No Family Present SEPSIS Sepsis Screen Date sepsis recognized/suspect: May 03, 2025 Time Sepsis recognized/suspect: 1026 Recent Procedure: No On Antibiotic Therapy: No Respiratory Rate >20: No Heart Rate >90: No Temp<36 C (96.8 F) or >38.3 C: No SBP <90 or MAP <65 mmHG: No New Acute Mental Status Change: No Is the patient on CPAP, BIPAP,: No Physician Orders Ct Ab Pel Wo Con-No Oral Or Iv (05/03/25 11:18) Vital Signs Date Time Temp Pulse Resp B/P (MAP) Pulse Ox O2 Delivery O2 Flow Rate FiO2 05/03/25 13:24 98.0 78 16 122/66 (84) 100 98.0 05/03/25 11:57 98.7 78 16 122/66 (84) 100 98.7 05/03/25 11:57 78 17 100 Room Air 05/03/25 10:24 98.0 89 18 100/58 99 98.0 Medications Medications Dose Ordered Sig/Juan Route Start Time Stop Time Status Last Admin Dose Admin Sodium Chloride 1,000 ml @ 1,000 mls/hr Q1H ONCE IV 05/03/25 11:30 05/03/25 12:29 DC 05/03/25 11:48 Departure 1 Departure Time of Disposition: 11:41 Impression: Primary Impression: Acute abdominal pain Additional Impression: Mesenteric adenitis Disposition: HOME / SELF CARE / HOMELESS Condition: Good e-Prescriptions Ibuprofen Micronized (MOTRIN TABLET) 600 Mg Tb 600 MG PO TID PRN for 3 Days, #9 TAB *Black box warning-NSAIDS can increase risk of AL & hypertension, GI irritation, ulceration, bleed, perferation. Do not use post cardiac surgery. Use short duration/lowest effective dose. Prov: CHAD OLMOS MD 05/03/25 Metronidazole (Flagyl) 500 Mg Tab 500 MG PO TID for 5 Days, #15 TAB Prov: CHAD OLMOS MD 05/03/25 Discharged With: Self Critical Care Note Critical Care Time?: No Stability Stability form required: No Heart Score Heart Score: Heart Score Response (Comments) Value History N/A 0 EKG N/A 0 Age N/A 0 Risk Factors N/A 0 Troponin N/A 0 Total 0 I personally scribed for CHAD OLMOS MD ([email or web address]) on 05/03/25 at 11:30. Electronically submitted by Dorian Chandler ([email or web address]). CHAD OLMOS MD May 03, 2025 11:30
[2025-05-03] MEDS: SODIUM CHLORIDE 0.9% 1,000 ML IV ONE (11:48)
--- NOTE | 2025-05-03 12:08 | DVH ---
Exam: CT CT AB PEL WO CON-NO ORAL OR IV History: colitis Comparison Study: None TECHNIQUE: Multidetector CT of the abdomen was performed from lung bases to pubic symphysis. Imaging was performed without IV contrast. Axial, coronal and sagittal multiplanar reformats were obtained fr om the axial data set by the technologist. Radiation Dose Information: CT Dose: CTDI volume is 5.2 mGy. Dose-length product is 278 mGy*cm FINDINGS: Evaluation of solid organs is limited due to lack of intravenous contrast use. Findings: Lung Bases: No acute or significant lung base finding. Normal heart size. No pleural or pericardial effusion. Liver: The liver is normal in size. No focal lesions. Gallbladder and Biliary Tree: Unremarkable Spleen: Unremarkable Pancreas: The pancreas is grossly normal in appearance. Adrenal Glands: Unremarkable Kidneys: Kidneys are grossly normal without calculi or hydronephrosis. Bladder: Grossly unremarkable for degree of distention. Bowel: The stomach is grossly normal in appearance. Small bowel and colon are normal in caliber and d istribution. The appendix is not visualized; however, no secondary findings of acute appendicitis id entified. Ascites: Absent Lymphadenopathy: No mesenteric, retroperitoneal or periportal lymphadenopathy. Abdominal Mesentery: There is questionable minimal inflammatory change present within the mesenteric fat of the deep pelvis, no definite colonic wall thickening is seen. No abscess is seen. Vasculature: The visualized abdominal aorta is normal in size and caliber. Evaluation of abdominal a nd pelvic vessels is limited due to lack of intravenous contrast. Pelvic Organs: Unremarkable Musculoskeletal: No aggressive focal bony lesions, acute fractures or dislocation. Soft tissues: Unremarkable IMPRESSION: 1. Questionable minimal inflammatory change present within the mesenteric fat of the deep pelvis, no definite colonic wall thickening is seen, question significance, clinical correlation recommended. 2. Radiation optimization: All CT scans at this facility use at least one of these dose optimization techniques: automated exposure control mA and/or kV adjustment per patient size (includes targeted e xams where dose is matched to clinical indication) or iterative reconstruction.
[2025-05-03] MEDS ORDERED: IBU600T PO (13:04)
[2025-05-03] MEDS ORDERED: METR-344 PO (13:04)
[2025-05-03 13:24] VITALS: BP 122/66; PULSE 78; RESP 16; TEMP 98; O2SAT 100
== END 2025-05-03 13:25 | disposition home or self-care (01) ==
LOC: ER 10:23
DX: I88.0 Nonspecific mesenteric lymphadenitis (principal); R10.33 Periumbilical pain; Z91.018 Allergy to other foods
CPT/HCPCS: 36415; 74176; 85379; 96360; 99284; J7030; 96361

== ENCOUNTER 2025-05-25 10:13 | Emergency (ER) | payer OTHER ==
[~2025-05-25] VITALS: Ht 167.6 cm; Wt 65.6 kg
[~2025-05-25 10:13] MED LIST changes: +IBU600T PO; +METR-344 PO
[2025-05-25] MEDS ORDERED: CIPR0.3S67 OP (11:07)
[2025-05-25] MEDS ORDERED: KETO0.5S31 RIGHTEYE (11:07)
--- NOTE | 2025-05-25 11:08 | ED.PDOC ---
Eye-HPI HPI Comments r eye Chief Complaint: Eye Problem Time Seen by MD: 10:28 Primary Care Provider: Coy Allergies: Coded Allergies: Coconut (Cocos Nucifera) (Verified Allergy, Unknown, 05/03/25) Fluoxetine (Verified Allergy, Unknown, 05/03/25) Home Meds Active Scripts Ketorolac Tromethamine (Ophth) (Ketorolac Tromethamine) 0.5 % Summer, 1 DROP RIGHTEYE QID for 2 Days, #5 ML 0 Refills Prov:DEACON RITCHIE NP 05/25/25 Ciprofloxacin HCl (Ophth) (Ciprofloxacin Hydrochlori) 0.3 % Summer, 1 DROP OP QID for 5 Days, #5 ML 0 Refills Prov:DEACON RITCHIE NP 05/25/25 Ibuprofen Micronized (MOTRIN TABLET) 600 Mg Tb, 600 MG PO TID PRN for 3 Days, #9 TAB *Black box warning-NSAIDS can increase risk of CO & hypertension, GI irritation, ulceration, bleed, perferation. Do not use post cardiac surgery. Use short duration/lowest effective dose. Prov:HCAD OLMOS MD 05/03/25 Metronidazole (Flagyl) 500 Mg Tab, 500 MG PO TID for 5 Days, #15 TAB Prov:CHAD OLMOS MD 05/03/25 Cephalexin Monohydrate (Cephalexin) 500 Mg Cap, 1 CAP PO QID, #28 CAP Prov:VILLA DANIELLE 05/03/25 Triamcinolone Acetonide (Triamcinolone Acetonide) 0.025 % Cre, 1 APPLIC TOP BID, #30 GRAMS Prov:VILLA DANIELLE 05/03/25 Gentamicin Sulfate (Gentamicin Sulfate) 0.3 % Summer, 2 DROP LEFTEYE 6XD for 5 Days, #1 BOTTLE 0 Refills Prov:GARRISON ANAND 07/21/24 Nitrofurantoin Monohydrate Mac (Macrobid) 100 Mg Cap, 100 MG PO BID for 5 Days, #10 CAP Prov:GIL AVILEZ PAC 06/13/24 Reported Medications Vit W/ Ferrous Fumara ( One Daily) Daily Tab, 1 TAB PO DAILY, #90 TAB 3 Refills 03/30/24 Cephalexin (KEFLEX CAPSULE) 250 Mg Cp, 500 MG PO QID for 7 Days, CAP 03/30/24 Nifedipine (PROCARDIA CAPSULE) 10 Mg Cp, 10 MG PO, CAP 03/15/24 Amphetamine/Dextroamphetamine (Adderall) 5 Mg Tab 05/15/12 Clonidine Hydrochloride (Clonidine Hcl) 0.1 Mg Tab 05/15/12 Mode of Arrival: Ambulatory Past Medical History PAST MEDICAL HISTORY: UTI'S 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: 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 History: No Pertinent GRADE CHECKER History Family History Family History: Reviewed,noncontributory to illness Social History Smoker: Non-Smoker Alcohol: Denies ETOH Use Drugs: Denies Drug Use Lives In: Home X-Ray, Labs, Meds, VS Vital Signs Date Time Temp Pulse Resp B/P (MAP) Pulse Ox O2 Delivery O2 Flow Rate FiO2 05/25/25 11:21 98.7 77 16 118/76 (90) 98 98.7 05/25/25 11:21 77 05/25/25 10:27 99.1 80 15 114/71 99 99.1 SEPSIS Sepsis Screen Date sepsis recognized/suspect: May 25, 2025 Time Sepsis recognized/suspect: 1029 Recent Procedure: No On Antibiotic Therapy: No Respiratory Rate >20: No Heart Rate >90: No Temp<36 C (96.8 F) or >38.3 C: No SBP <90 or MAP <65 mmHG: No New Acute Mental Status Change: No Is the patient on CPAP, BIPAP,: No Vital Signs Date Time Temp Pulse Resp B/P (MAP) Pulse Ox O2 Delivery O2 Flow Rate FiO2 05/25/25 11:21 98.7 77 16 118/76 (90) 98 98.7 05/25/25 11:21 77 05/25/25 10:27 99.1 80 15 114/71 99 99.1 Departure 1 Departure Time of Disposition: 11:04 Impression: Primary Impression: Conjunctivitis Qualified Codes: H10.31 - Unspecified acute conjunctivitis, right eye Disposition: HOME / SELF CARE / HOMELESS Condition: Stable e-Prescriptions Ketorolac Tromethamine (Ophth) (Ketorolac Tromethamine) 0.5 % Summer 1 DROP RIGHTEYE QID for 2 Days, #5 ML 0 Refills Prov: DEACON RITHCIE TECHNICAL SALES SUPPORT MANAGER 05/25/25 Ciprofloxacin HCl (Ophth) (Ciprofloxacin Hydrochlori) 0.3 % Summer 1 DROP OP QID for 5 Days, #5 ML 0 Refills Prov: DEACON RITCHIE NP 05/25/25 Discharged With: Self Critical Care Note Critical Care Time?: No Stability Stability form required: No Heart Score Heart Score: Heart Score Response (Comments) Value History N/A 0 EKG N/A 0 Age N/A 0 Risk Factors N/A 0 Troponin N/A 0 Total 0 I personally scribed for DEACON RITCHIE NP ([email or web address]) on 05/25/25 at 13:46. Electronically submitted by Matt Knutson ([email or web address]). DEACON RITCHIE NP May 25, 2025 11:08
--- NOTE | 2025-05-25 11:14 | ED.PDOC ---
Eye-HPI HPI Comments 24-year-old female presents to the ER with a chief complaint of right eye pain and irritation. Patient has been experiencing significant eye pain and irritation for seven days, which worsens with a blinking. The pain is described as moderate, with a burning sensation and occasionally drainage that runs and stops". Patient states on using eyedrops antibiotics as prescribed by a doctor at [facility] with the symptoms have not resolved. They are unsure of the specific medications they are currently using, only recalling a gel prescribed by the doctor. The patient does wear contact lenses but denies sleeping with them. Patient also mentions the possibility of makeup entering the eye. Denies any other symptoms at this time. Chief Complaint: Eye Problem Time Seen by MD: 11:10 Primary Care Provider: Coy Villalobos Notes: Nurses Notes, Medications, Allergies Allergies: Coded Allergies: Coconut (Cocos Nucifera) (Verified Allergy, Unknown, 05/03/25) Fluoxetine (Verified Allergy, Unknown, 05/03/25) Home Meds Active Scripts Ketorolac Tromethamine (Ophth) (Ketorolac Tromethamine) 0.5 % Summer, 1 DROP RIGHTEYE QID for 2 Days, #5 ML 0 Refills Prov:DEACON RITCHIE AUTOMATIC DEVELOPER 05/25/25 Ciprofloxacin HCl (Ophth) (Ciprofloxacin Hydrochlori) 0.3 % Summer, 1 DROP OP QID for 5 Days, #5 ML 0 Refills Prov:DEACON RITCHIE AUTOMATIC DEVELOPER 05/25/25 Ibuprofen Micronized (MOTRIN TABLET) 600 Mg Tb, 600 MG PO TID PRN for 3 Days, #9 TAB *Black box warning-NSAIDS can increase risk of [place] & hypertension, GI irritation, ulceration, bleed, perferation. Do not use post cardiac surgery. Use short duration/lowest effective dose. Prov:CHAD OLMOS MD 05/03/25 Metronidazole (Flagyl) 500 Mg Tab, 500 MG PO TID for 5 Days, #15 TAB Prov:CHAD OLMOS MD 05/03/25 Cephalexin Monohydrate (Cephalexin) 500 Mg Cap, 1 CAP PO QID, #28 CAP Prov:VILLA DANIELLE 05/03/25 Triamcinolone Acetonide (Triamcinolone Acetonide) 0.025 % Cre, 1 APPLIC TOP BID, #30 GRAMS Prov:VILLA DANIELLE PA 05/03/25 Gentamicin Sulfate (Gentamicin Sulfate) 0.3 % Summer, 2 DROP LEFTEYE 6XD for 5 Days, #1 BOTTLE 0 Refills Prov:GARRISON ANAND PA 07/21/24 Nitrofurantoin Monohydrate Mac (Macrobid) 100 Mg Cap, 100 MG PO BID for 5 Days, #10 CAP Prov:GIL AVILEZ PAC 06/13/24 Reported Medications Vit W/ Ferrous Fumara ( One Daily) Daily Tab, 1 TAB PO DAILY, #90 TAB 3 Refills 03/30/24 Cephalexin (KEFLEX CAPSULE) 250 Mg Cp, 500 MG PO QID for 7 Days, CAP 03/30/24 Nifedipine (PROCARDIA CAPSULE) 10 Mg Cp, 10 MG PO, CAP 03/15/24 Amphetamine/Dextroamphetamine (Adderall) 5 Mg Tab 05/15/12 Clonidine Hydrochloride (Clonidine Hcl) 0.1 Mg Tab 05/15/12 Information Source: Patient Mode of Arrival: Ambulatory Timing: Days Duration: Since onset, Days Prehospital treatment: None Quality: Pain, Red Eye Location: Right Lids: Normal Conjunctiva: Normal Cornea: Normal Pupils: Normal EOM: Normal Fundus: Normal Slit lamp exam: Normal Anterior chamber: Normal Mouth: Normal ENT Ear Exam: Normal, Normal, Normal Nose: Normal Sinuses: Normal Oropharynx: Normal Onset: Spontaneous Throat Exposed to: None Eye Context Recent: Antibiotic Use Associated signs and symptoms: None Past Medical History PAST MEDICAL HISTORY: UTI'S 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: [employer] History: No Pertinent [employer] History Family History Family History: Reviewed,noncontributory to illness, Unknown Social History Smoker: Non-Smoker Alcohol: Denies ETOH Use Drugs: Denies Drug Use Lives In: Home Constitutional: denies: chills, diaphoresis, fatigue, fever, malaise, sweats, weakness, others EENTM: reports: eye pain, eye redness; denies: blurred vision, double vision, ear bleeding, ear discharge, ear drainage, ear pain, ear ringing, hearing loss, mouth pain, mouth swelling, nasal discharge, nose bleeding, nose congestion, nose pain, photophobia, tearing, throat pain, throat swelling, voice changes, others Respiratory: denies: cough, hemoptysis, orthopnea, SOB at rest, shortness of breath, SOB with excertion, stridor, wheezing, others Cardiovascular: denies: chest pain, dizzy spells, diaphoresis, Dyspnea on exertion, edema, irregular heart beat, left arm pain, lightheadedness, palpitations, PND, syncope, others Gastrointestinal: denies: abdomen distended, abdominal pain, blood streaked bowels, constipated, diarrhea, dysphagia, difficulty swallowing, hematemesis, melena, nausea, poor appetite, poor fluid intake, rectal bleeding, rectal pain, vomiting, others Genitourinary: denies: abnormal vagina bleeding, burning, dyspareunia, dysuria, flank pain, frequency, hematuria, incontinence, pain, , vagina discharge, urgency, others Neurological: denies: dizziness, fainting, headache, left sided numbness, left sided weakness, numbness, paresthesia, pre-existing deficit, right sided numbness, right sided weakness, seizure, speech problems, tingling, tremors, weakness, others Musculoskeletal: denies: back pain, gout, joint pain, joint swelling, muscle pain, muscle stiffness, neck pain, others Integumetry: denies: bruises, change in color, change in hair/nails, dryness, laceration, lesions, lumps, rash, wounds, others Allergic/Immunocompromised: denies: Difficulty Healing, Frequent Infections, Hives, Itching, others Hematologic/Lymphatic: denies: anemia, blood clots, easy bleeding, easy bruising, swollen glands, others Endocrine: denies: excessive hunger, excessive sweating, excessive thirst, excessive urination, flushing, intolerance to cold, intolerance to heat, unexplained weight gain, unexplained weight loss, others Psychiatric: denies: anxiety, bipolar disorder, depression, hopeless, panic disorder, schizophrenia, sleepless, suicidal, others All Other Systems: Reviewed and Negative Physical Exam General Appearance: No Apparent Distress, Normal HEENT: Normal ENT Inspection, PERRL/EOMI (no orbital swelling. right eye injected. vision intact. no vision changes. no fb appreciated. ), Pharynx Normal, TMs Normal Neck: Full Range of Motion, Non-Tender, Normal, Normal Inspection Respiratory: Chest Non-Tender, Lungs Clear, No Accessory Muscle Use, No Respiratory Distress, Normal Breath Sounds Cardiovascular: No Edema, No JVD, No Murmur, No Gallop, Normal Peripheral Pulses, Regular Rate/Rhythm Breast Exam: Deferred Gastrointestinal: No Organomegaly, Non Tender, No Pulsatile Mass, Normal Bowel Sounds, Soft Genitalia: Deferred Pelvic: Deferred Rectal: Deferred Extremities: No calf tenderness, Normal capillary refill, Normal inspection, Normal range of motion, Non-tender, No pedal edema Musculoskeletal : Apperance: Normal Neurologic: Alert, title insurance examiner II-XII nml as Tested, No Motor Deficits, Normal Affect, Normal Mood, No Sensory Deficits Cerebellar Function: Normal Reflexes: Normal Skin: Dry, Normal Color, Warm Lymphatic: No Adenopathy Was a procedure done? Was a procedure done?: No EENT DIFF Eye: Conjunctivitis Ear: N/A Nose: N/A Mouth: N/A Sore Throat: N/A X-Ray, Labs, Meds, VS Vital Signs Date Time Temp Pulse Resp B/P (MAP) Pulse Ox O2 Delivery O2 Flow Rate FiO2 05/25/25 11:21 98.7 77 16 118/76 (90) 98 98.7 05/25/25 11:21 77 05/25/25 10:27 99.1 80 15 114/71 99 99.1 X-Ray, Labs, Meds, VS Comment 24-year-old female presents to the ER with a chief complaint of right eye pain and irritation. Patient arrives alert and oriented, ABC's intact, afebrile, vital signs stable, saturating well in room air Presentation consistent with conjunctivitis. Patient is otherwise afebrile and well-appearing without clinical evidence of pre-septal cellulitis or orbital cellulitis. No recent history concerning for corneal abrasion or retained foreign body. No corneal opacity of keratitis, no ciliary flush on exam Prescription for topical antibiotics provided. Advised that patient still cons idered contagious for up to 24 hours after starting antibiotics Given patient wears contact lenses, will avoid erythromycin ointment Discussed: -Frequent hand washing -Over the counter analgesics -Hydration - Return to school/work after 24 hours of antibiotic use -Close follow up with a primary care provider or higher level of care if no improvement/worsening symptoms -If wearing contact lenses: -If no improvement with antibiotic drops within 48 hours, need to see ophthalmology -Advised to toss old lenses/clean contact case, once finished with antibiotics, wait 24 hours and if discharge resolved, may then use new set of contact lenses. Additional MDM Review of External, Non-ED records: External records reviewed. Discussion with independent historian (EMS, family) history obtained from the patient/parents (if applicable) at bedside Chronic conditions affecting care: None Social determinants of health affecting care: None Consideration of admission (observation or admission): I considered escalation of care to admission for this patient, however given the reassuring workup, the patient is safe for outpatient management. Discussion with the Radiology: No Tests considered but not performed: Prescription medication considered but not given: 12 lead EKG interpretation: Time of 1ST Reevaluation: 11:40 Reevaluation 1ST: Improved Patient Education/Counseling: Diagnosis, Treatment, Prognosis Family Education/Counseling: No Family Present SEPSIS Sepsis Screen Date sepsis recognized/suspect: May 25, 2025 Time Sepsis recognized/suspect: 1029 Recent Procedure: No On Antibiotic Therapy: No Respiratory Rate >20: No Heart Rate >90: No Temp<36 C (96.8 F) or >38.3 C: No SBP <90 or MAP <65 mmHG: No New Acute Mental Status Change: No Is the patient on CPAP, BIPAP,: No Vital Signs Date Time Temp Pulse Resp B/P (MAP) Pulse Ox O2 Delivery O2 Flow Rate FiO2 05/25/25 11:21 98.7 77 16 118/76 (90) 98 98.7 05/25/25 11:21 77 05/25/25 10:27 99.1 80 15 114/71 99 99.1 Departure 1 Departure Time of Disposition: 11:41 Impression: Primary Impression: Conjunctivitis Qualified Codes: H10.31 - Unspecified acute conjunctivitis, right eye Disposition: HOME / SELF CARE / HOMELESS Condition: Stable e-Prescriptions Ketorolac Tromethamine (Ophth) (Ketorolac Tromethamine) 0.5 % Summer 1 DROP RIGHTEYE QID for 2 Days, #5 ML 0 Refills Prov: DEACON RITCHIE AUTOMATIC DEVELOPER 05/25/25 Ciprofloxacin HCl (Ophth) (Ciprofloxacin Hydrochlori) 0.3 % Summer 1 DROP OP QID for 5 Days, #5 ML 0 Refills Prov: DEACON RITCHIE AUTOMATIC DEVELOPER 05/25/25 Discharged With: Self Critical Care Note Critical Care Time?: No Stability Stability form required: No Heart Score Heart Score: Heart Score Response (Comments) Value History N/A 0 EKG N/A 0 Age N/A 0 Risk Factors N/A 0 Troponin N/A 0 Total 0 I personally scribed for DEACON RITCHIE NP ([email or web address]) on 05/25/25 at 11:13. Electronically submitted by Matt Knutson ([employer]). I personally scribed for DEACON RITCHIE NP ([email or web address]) on 05/25/25 at 13:47. Electronically submitted by Matt Knutson ([employer]). DEACON RITCHIE NP May 25, 2025 11:13
[2025-05-25 11:21] VITALS: BP 118/76; PULSE 77; RESP 16; TEMP 98.7; O2SAT 98
== END 2025-05-25 11:23 | disposition home or self-care (01) ==
LOC: ER 10:13
DX: H10.31 Unspecified acute conjunctivitis, right eye (principal); Z87.440 Personal history of urinary (tract) infections; Z91.018 Allergy to other foods; Z98.890 Other specified postprocedural states; Z88.8 Allergy status to other drugs, medicaments and biological substances